=== PATIENT | female | born 1995 | race Caucasian/White ===

== ENCOUNTER → 2017-12-01 12:36 | Outpatient (CLI) | payer SELFPAY ==
--- NOTE | 2017-12-01 12:40 | US_ITS ---
STUDY: SECOND AND THIRD TRIMESTER OBSTETRICAL ULTRASOUND REASON FOR EXAM: Female, 22 years old. Anatomy. LMP: Unknown. Patient states estimated due date April 23, 2018. TECHNIQUE: Transabdominal PRIOR ULTRASOUND: None. FINDINGS: There is a single intrauterine fetus. The fetus is in a breech presentation. There is demonstrated cardiac activity with a heart rate of 140 bpm. There is a normal amniotic fluid volume. The largest amniotic fluid pocket measures 5.6 x 3.1 cm. The placenta is anterior in location and is not low lying. There are Grade 0 placental changes. The cervix measures 3.4 cm in length and is closed. The bilateral adnexal regions are normal. BIOMETRY: BPD: 4.53 cm: 19 weeks, 5 days HC: 17.66 cm: 20 weeks, 2 days AC: 16.23 cm: 21 weeks, 3 days FL: 3.27 cm: 20 weeks, 2 days CI: 73% FL/BPD: 72% FL/AC: 20% HC/AC: 1.09 age by current US: 20 weeks, 3 days. JOHN by current US: April 17, 2018. Estimated weight: 371 grams, +/- 54 grams, 96 %. Age by given JOHN: 19 weeks, 4 days. Given JOHN: April 23, 2018. ANATOMY: Gender: Female Cranium: Normal lateral ventricles. Normal choroid plexus. Normal cerebellum. Normal cisterna magna. Normal face, nose and lips. Chest: Normal 4-chamber heart. Abdomen/Pelvis: Normal diaphragm. The distended stomach was never visualized. Normal abdominal wall. Normal cord insertion. Normal 3 vessel cord. Normal kidneys. Normal bladder. Spine: Normal cervical spine. Normal thoracic spine. Normal lumbar spine. Normal sacrum. Extremities: Normal bilateral upper extremities. Normal bilateral lower extremities. US/OB Anatomy Scan IMPRESSION: 1. Single living intrauterine female fetus presently in breech presentation, with estimated gestational age of 20 weeks, 3 days. This may date of delivery by today's study is April 17, 2018. 2. The distended stomach was never visualized. The anatomic survey was otherwise unremarkable. 3. Estimated weight is 371 g. 4. The cervix is closed. Cervical length is 3.4 cm. 5. Grade 0 anterior placenta is not low-lying. 6. Visually normal amniotic fluid volume. Largest pocket is 5.6 cm. Electronically Signed: Hossein Child MD at 19:57 EDT , Service support ,
== END ==
PROVIDERS: Visit Provider Obstetrics & Gynecology
DX: Z36.2 Encounter for other antenatal screening follow-up (principal)
CPT/HCPCS: 76805

== ENCOUNTER 2020-07-30 15:00 | Outpatient (CLI) | payer SELFPAY ==
[2020-07-30 15:24] VITALS: BP 118/66; PULSE 76
[2020-07-30 15:26] VITALS: TEMP 37.2
[2020-07-30 17:07] VITALS: BMI 36.6
[2020-07-30] MEDS: Lactated Ringers 1,000 ML 125 ML IV (17:10)
[2020-07-30] MEDS: Terbutaline 1 MG/ML Vial 0.25 MG SC (17:29)
[2020-07-30 18:33] VITALS: TEMP 37.6
[2020-07-30 18:34] VITALS: BP 130/59; PULSE 90; TEMP 37.6
--- NOTE | 2020-07-31 02:24 | OB.TRI.HP_ITS ---
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 Patient has had a normal with no complications. She denies any vaginal bleeding loss of fluid admits good movement. Upon initial evaluation she is noted to be in breech presentation. Cervix was closed thick and high. 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 Review of Systems Constitutional: Denies: Fever, Malaise Eyes: Denies: Blurred vision, Vision Change HEENT: Denies: Head Aches, Visual Changes Cardiovascular: Denies: Chest Pain, Palpitations Respiratory: Denies: Cough, Shortness of Breath, Wheezing Gastrointestinal: Denies: Abdominal Pain, Diarrhea, Nausea, Vomiting Genitourinary: Denies: Dysuria, Hematuria Musculoskeletal: Denies: Joint Pain, Muscle pain Skin: Denies: Lesions, Rash Neurological: Denies: Blurred vision, Focal weakness, Headaches Psychiatric: Denies: Anxiety, Depression Endocrine: Denies: Heat/ Cold Intolerance Hematologic/ Lymphatic: Denies: Easy Bruising, Easy Bleeding Physical Exam Vitals: Vital Signs Temp Pulse BP 99.7 F H 90 130/59 H 07/30/20 18:34 07/30/20 18:34 07/30/20 18:34 General: Alert, Cooperative, No apparent distress HEENT: Atraumatic, Normocephalic. Negative for: Thyromegaly, Lymphadenopathy Cardiovascular: Regular rate Lungs: Normal air movement Abdomen: Soft, Non Tender, Gravid Neurological: Deep Tendon Reflexes 2+/4 and Symmetrical, Neuro grossly intact. Negative for: Clonus BRAKE SHOE REBUILDER: Normal external genitalia. Negative for: Vulvar lesions Estimated gestational size: Appropriate for gestational size Presentation: Cephalic Cervix Dilation (cm): 0 Station: -3 Effacement (%): 0 NST - FHR Rate Baby A Baseline: 120 Variability:: Moderate Accelerations:: 15 x 15 Decelerations:: None NST Reactive:: Yes, Appropriate for gestational age FHR Category:: Category I Uterine Activity:: no regular Impression/Plan 24-year-old G3, P2 at 39 weeks 5 days with breech presentation previous heart rate deceleration Extended monitoring shows reassuring heart rate tracing category 1 no decelerations present. Due to breech presentation recommendation for external cephalic version which was successful. RIVERA 11.7 cm. Patient monitored for over an hour after ECV with reassuring pattern and no decelerations present. Previous deceleration was likely due to the fetus being in malpresentation. Discussed with the patient and her business programmer that due to the reassuring heart rate status and her cervix being unfavorable for induction would not recommend induction of labor at this time.
--- NOTE | 2020-07-31 02:25 | PCM.OPRPT ---
Problem List (1) Breech malpresentation successfully converted to cephalic presentation Status: Acute Report of Operation Date of Procedure: 07/30/20 Description of Surgical Findings:: Preprocedure diagnosis: Breech presentation Post procedure diagnosis: Vertex presentation Procedure: External cephalic version Surgeon: Daylin Story EBL: None Complications: None Anesthesia: None Special medications: Terbutaline criselda 11.7cm Seizure details: The fetus was found to be in breech presentation informed by ultrasound. Patient had an IV in place, normal amniotic fluid, no contraindications to a vaginal delivery, and reactive nonstress test prior to the procedure. Patient was placed in the dorsal supine position after the terbutaline was given. Ultrasound gel was applied to the patient's abdomen and using constant upward pressure to elevate the buttocks out of the pelvic inlet constant pressure was applied to the buttocks and to the area behind the back of the neck and head to encourage a forward roll of the fetus. Constant pressure was applied and slowly the infant was converted to a vertex presentation. Bedside ultrasound was used to confirm vertex presentation and reassuring heart rate. Patient was replaced on the NST and monitored to assure reassuring status. No complications. Multi Select Codes - Visit Charges Office Visit/Consults: 19393 OV L3 Est - Urinary/Genital Urinary/Genital CPT Codes: 13703 ECV
== END 2020-07-30 19:55 | disposition home or self-care (01) ==
LOC: WPOUT 15:09 → WP 15:10
PROVIDERS: Referring Provider Obstetrics & Gynecology; Visit Provider Obstetrics & Gynecology
DX: O32.1XX0 Maternal care for breech presentation, not applicable or unspecified (principal); Z87.59 Personal history of other complications of pregnancy, childbirth and the puerperium; Z3A.39 39 weeks gestation of pregnancy
CPT/HCPCS: 59412; 96360; 96361; 59050; 96372; 99218; J7120; G0378